=== PATIENT | female | born 1940 | race Caucasian/White ===

== ENCOUNTER → 2017-03-21 | Outpatient (CLI) | payer OTHER ==
[~2017-03-21] MED LIST: ACETAMINOPHEN PO; ACTOPLUS MET X1 EACH PO; ALEVE PO; AMARYL PO; APAP PO; AVANDAMET 4 MG/1 TAB PO; CLEOCIN HCL300 M1 PO; CLOBETASOL 0.0560 GM TOP; FIBER THERAPY; FUROSEMIDE; FUROSEMIDE40 MG PO; GABAPENTIN300 M2 PO; GLYBURIDE PO; GLYNASE PO; IRON SUPPLEMENT1 TAB PO; LISINOPRIL PO; LISINOPRIL30 MG PO; MELOXICAM15 MG PO; MOBIC PO; MULTI-VITAMIN1 TAB PO; NABUMETONE PO; NEURONTIN PO; NEXIUM PO; NOVOLOG FL100 UNIT/1; ONE DAILY WOME0.4 MG; PERCOCET 5-3251 TAB PO; PRAVACHOL PO; PRAVASTATIN SOD40 MG PO; PROPOXY N PO; STOOL SOFTENER100 M1 PO; TEMOVATE 0.05%15 GM EXT; VITAMIN E400 UNI2 PO
--- NOTE | ~2017-03-21 | MR113 ---
[facility] A Service of [facility] & [facility] RADIOLOGY TEXT RESULTS PATIENT: LUIS ZAIDI LOCATION: [facility] : 41 UNIT #: [id number] AGE: [address]: Shade Wilhelm MD SEX: F ORDER DR: [id number] [facility] [address] [place], [place] [address] [id number] O MR#: [id number] #: [id number] NAME: LUIS ZAIDI. : 1940 SEX: F STUDY DATE/TIME: 03/21/2017 18:53 UNIT: [facility] ROOM: STUDY DESCRIPTION: MR Lumbar Wo Contrast Attending Physician: Shade Wilhelm M.D. Referring Physician: Shade Wilhelm M.D. Ordering Physician: Shade Wilhelm M.D. Primary Care Physician: Shade Wilhelm M.D. MRI CENTER REPORT This report is preliminary unless electronic signature is present. EXAM MRI of the lumbar spine without contrast dated 03/21/2017. COMPARISON MRI lumbar spine without contrast dated 04/18/2008. HISTORY Low back pain for several years. Patient fell backwards off a 3-foot stool years ago with neuropathy in feet. TECHNIQUE Multisequence, multiplanar imaging of the lumbar spine was obtained without contrast. FINDINGS Disc osteophyte complexes are at multiple levels. Retrolisthesis is noted at L4 with respect to L5 (7.5 mm) and L5 with respect to S1 (6.5 mm). It has worsened in the last 9 years, particularly at L4-5. Conus terminates at L1. Signals of conus and cauda equina are within normal limits. Multilevel Schmorl nodes, endplate irregularities and loss of disc heights are noted, which have worsened in the last 9 years. Minimal bone edema is noted in the lumbar vertebrae, likely related to degenerative change. Pre- and paravertebral soft tissues do not demonstrate any significant acute abnormality. Postoperative change with posterior decompression is noted at L5 and L4, new since prior study. T12-L1: Concentric disc bulge without canal stenosis or neural foraminal narrowing. L1-2: Concentric disc bulge with borderline-sized to mild canal stenosis. No neural foraminal narrowing. L2-3: Moderate disc osteophyte complex which is asymmetrically prominent [facility] A Service of [facility] & [facility] RADIOLOGY TEXT RESULTS PATIENT: LUIS ZAIDI LOCATION: [facility] : 41 UNIT #: [id number] AGE: [address]: Shade Wilhelm MD SEX: F ORDER DR: in bilateral foraminal to extraforaminal regions, particularly on the right. Moderate right and mild left ligamentum flavum thickening is noted with severe canal stenosis, particularly in the transverse dimension. Mild bilateral neural foraminal narrowing is noted. Mild bilateral lateral recess encroachment is probably present. Interval worsening. L3-4: Disc osteophyte complex with bilateral foraminal to extraforaminal broad-based protrusions. Moderate right and moderate to severe left neural foraminal narrowing is noted. Mild to moderate bilateral facet hypertrophic changes are seen with severe canal stenosis. Mild bilateral lateral recess stenosis is noted. Portions of the spinous process and adjacent lamina are not seen. L4-5: Posterior decompression is seen. There is deformity of the posterior column. Moderate right and mild to moderate left facet hypertrophic changes are noted with mild to moderate mass effect on the thecal sac. Mild to moderate right and mild left facet hypertrophic changes are noted with severe bilateral neural foraminal narrowing. L5-S1: Disc osteophyte complex with severe bilateral neural foraminal narrowing, worse on the right. Mild left and mild to moderate right facet hypertrophic changes are noted with moderate canal stenosis, mild to moderate bilateral lateral recess stenosis. Relatively stable. IMPRESSION 1. When compared to the prior study from 9 years ago, there has been interval surgery with posterior decompression at L3-4 and L4-5 levels. Bilateral neural foraminal narrowing and mass effect on the thecal sac is still present. No signs of acute inflammation or postoperative drainable fluid collection/seroma. 2. Among the nonoperative levels, findings are relatively worse at L2-3 and L5-S1. Findings are also worsened at L2-L3 when compared to the prior study with severe transverse canal stenosis. Dictated by... Joanne Weaver M.D. THIS IS AN ELECTRONICALLY VERIFIED REPORT Joanne Weaver M.D. at 03/25/2017 7:45 PM CPR/pantera TD: 03/22/2017 15:42 JOB #: [id number] MRI CENTER REPORT Page 1 of 1 COPY
== END | disposition home or self-care (01) ==
LOC: CMRI 18:07
DX: M54.5 Low back pain (principal); M99.83 Other biomechanical lesions of lumbar region; M48.06 Spinal stenosis, lumbar region
CPT/HCPCS: 72148